=== PATIENT | female | born 1955 | race Caucasian/White ===

== ENCOUNTER → 2016-11-21 | Outpatient (CLI) | payer OTHER ==
[~2016-11-21] MED LIST: GADOBUTROL 7.5 MMOL/7.5 ML VIAL IV ONE
[2016-11-21 15:13] LABS: CREATININE 1.1 mg/dL (0.6-1.0); GFR 50.7
--- NOTE | 2016-11-21 17:01 | RAD ---
INDICATION: Change in sense of smell and taste. Headaches. Symptoms for 4 months. TECHNIQUE: Whole brain sagittal T1, axial T1, axial T2, axial FLAIR, axial T2 gradient, diffusion imaging with ADC map, postcontrast axial, and postcontrast coronal sequences are provided. Thin imaging through the cribriform plate includes coronal T2 fat suppressed, axial T2 fat suppressed, axial T1, coronal T1, coronal postcontrast T1 and axial fat-suppressed postcontrast sequences. Thin postcontrast coronal series is degraded significantly. Other sequences also are degraded by motion. Patient received 7.5 mL of intravenous Gadavist without complication. Comparison believed to be the same patient is from October 22, 2009 from [facility]. FINDINGS: The ventricles and sulci are within normal limits for age. There is no acute intracranial hemorrhage or extra-axial fluid collection. There is no mass effect or midline shift. There is no restricted diffusion to suggest an acute infarct. Sagittal midline structures are unremarkable. Pituitary and suprasellar region are unremarkable. No enhancing lesion along the cribriform plate is apparent. There is no pathologic enhancement. There is minimal ethmoid mucosal thickening. There is minimal nonspecific fluid in the optic sheaths, orbital contents are otherwise within normal limits. Calvarial lesion overlying the right frontal lobe is stable back to 2009. This is likely benign. IMPRESSION: 1. No acute intracranial findings. 2. Allowing for motion, no evidence of cribriform plate mass. 3. Motion limited study. Electronically signed by: Tan Rogers MD (11/21/2016 4:58 PM) [id number]
== END | disposition home or self-care (01) ==
LOC: MRI 14:20
PROVIDERS: ATTEND Otolaryngology
DX: R43.8 Other disturbances of smell and taste (principal); R51 Headache
CPT/HCPCS: 36415; 70553; 82565; A9585